=== PATIENT | female | born 1950 | race Caucasian/White ===

== ENCOUNTER 2020-05-03 07:40 | Inpatient (IN) ==
--- NOTE | 2020-04-18 15:29 | PAT Medication Instructions ---
Medication Instructions Date of Service April 18, 2020 Home Medications Medication Instructions Recorded levothyroxine 75 mcg tablet 75 mcg PO .COMPLEX #100 tab 01/29/20 epinephrine 0.3 mg/0.3 mL injection, auto-injector 0.3 ml IM ONCE levothyroxine 75 mcg tablet 75 mcg PO .complex calcium carbonate-vitamin D3 [Calcium + D] 2 tab PO DAILY cholecalciferol (vitamin D3) [Vitamin D3] 50 mcg PO QAM Continue as directed epinephrine 0.3 mg/0.3 mL injection, auto-injector 0.3 ml IM ONCE DO NOT take the morning of surgery calcium carbonate-vitamin D3 [Calcium + D] 2 tab PO DAILY cholecalciferol (vitamin D3) [Vitamin D3] 50 mcg PO QAM Take morning of surgery With a small sip of water, OTHERWISE NOTHING TO EAT OR DRINK AFTER MIDNIGHT: levothyroxine 75 mcg tablet 75 mcg PO .complex Other Notes If you have any questions please call us at [phone] or [phone] or [phone] or [phone]
--- NOTE | 2020-04-19 13:30 | Anesthesiology Consultation ---
Date of Service April 19, 2020 Assessment & Plan (1) Encounter for pre-operative examination: COVID Status: As of 04/19 assessment, patient denies travel to endemic area, known exposure/sick contacts, or symptoms of COVID19. Patient instructed that they and their household members must follow strict social distancing guidelines, wear a mask in public and avoid travel/events/gatherings for 14 days prior to surgery. Preoperative COVID19 testing to be completed prior to surgery per surgeon's arrangements (04/26). Patient made aware to self-isolate as much as possible between COVID testing and surgery. Chart Review Chart Review: Acceptable Risk for Surgery and Patient seen in Pre Admission Testing Teaching & Discussion Instructed NPO after midnight before surgery, except medications with 15 cc of water. Medication instructions provided according to the PAT guidelines. History Surgery Operation Date: 05/03/20 09:05 Proposed Procedures p L3-L5 Decompression Fusion, Spinal Cord Monitoring - Masood Overton, Height/Weight Height: 5 ft 9 in Weight: 69.9 kg Allergies Allergy/AdvReac Type Severity Reaction Status Date / Time bee venom protein (honey bee) Allergy Severe ANAPHYLAXIS Verified 04/07/20 13:35 cat dander Allergy Intermediate ITCHY Verified 04/07/20 13:35 EYES, SNEEZING, RUNNY NOSE Medications Home Medications Medication Instructions Recorded Confirmed Last Taken epinephrine 0.3 mg/0.3 mL 0.3 ml IM ONCE ea 10/08/18 04/07/20 Unknown injection, auto-injector levothyroxine 75 mcg tablet 75 mcg PO .COMPLEX #100 tab 01/29/20 04/07/20 Unknown calcium carbonate-vitamin D3 2 tab PO DAILY 04/07/20 04/07/20 Unknown [Calcium + D] cholecalciferol (vitamin D3) 50 mcg PO QAM 04/07/20 04/07/20 Unknown [Vitamin D3] Past Medical History Medical History Degenerative disc disease Hypothyroidism Nerve damage RT HAND FINGERS Osteoarthritis Spinal stenosis Exercise / Class Metabolic Activity II 4-5 Yardwork/Stairs/Walk up hill Past Family History Family History Mother Bone cancer Heart disease Asthma Family history of diabetes mellitus Father Family history of diabetes mellitus Other No family history of adverse response to anesthesia Past Surgical History Surgical History H/O wrist surgery RT WRIST FX REPAIR (HARDWARD INTACT) History of hysterectomy History of tooth extraction Past Anesthesia History No Hx of Anesthesia Complications and No Family Hx of Anesthesia Complications History of PONV No Hx of PONV and No Hx of Motion Sickness Social History Smoking Status: Former smoker tobacco type: cigarettes Do You Dip or Chew Tobacco: No Smoking End Date: 1990 Hx Alcohol Use: Yes Alcohol type: wine alcohol intake frequency: a few times a month substance use type: does not use Review of Systems Pt denies any recent chest pain, shortness of breath, palpitations, cough, fever, URI, or uncontrolled acid reflux. Physical Exam Vital Signs BP: 138/84 P: 65bpm SPO2: 99% RA T: 97.8 F R: 16 ENMT Mouth: + dentures (full upper); no chipped teeth and no loose teeth Thyromental Distance: < 3.5 Finger Breadths (3) Mallampati Class: III Neck normal visual inspection; neck extension not limited Respiratory normal respiratory effort, lungs clear to auscultation Cardiovascular RRR, no murmur, no edema Vessels: no carotid bruit Testing Laboratory Results 04/19/20 14:01 04/19/20 14:01 PT 10.2 Seconds (9.0-12.0) 04/19/20 14:01 INR 1.0 (0.9-1.1) 04/19/20 14:01 APTT 24.2 Seconds (21.0-31.0) 04/19/20 14:01 Urine Color Yellow 04/19/20 Unknown Urine Appearance Clear (Clear) 04/19/20 Unknown Urine pH 5.5 (4.5-7.5) 04/19/20 Unknown Ur Specific [place] 1.016 (1.000-1.030) 04/19/20 Unknown Urine Protein Negative (Negative) 04/19/20 Unknown Urine Glucose (UA) Negative (Negative) 04/19/20 Unknown Urine Ketones Negative (Negative) 04/19/20 Unknown Urine Nitrite Negative (Negative) 04/19/20 Unknown Ur Leukocyte Esterase Negative (Negative) 04/19/20 Unknown Blood Type O Positive 04/19/20 14:01 Antibody Screen NEGATIVE 04/19/20 14:01 Electrocardiogram Date: 04/19/20 Findings: + NSR @ (62bpm) Chest X-Ray Date: 04/19/20 Findings: + NAD
--- NOTE | 2020-04-19 14:29 | XRay Report ---
XR chest Pre-admission PA/Lat HISTORY: 69 years-old Female pat preoperative exam. No acute chest complaints COMPARISON: None TECHNIQUE: PA and lateral views of the chest FINDINGS: Cardiomediastinal and hilar silhouettes are within normal limits. Calcified plaque of the thoracic ao rta. No pneumothorax, pleural effusion, airspace consolidation or overt pulmonary edema. Bones of the chest appear grossly intact. IMPRESSION: No acute process. ACT 112: Negative or not required by law. The above report was generated using voice recognition software. It may contain grammatical, syntax o r spelling errors. Electronically signed by: Humberto Tabares M.D. 04/19/2020 2:28 PM
[2020-04-19 15:00] LABS: Basophils # (auto) 0.02 K/uL (0-0.2); Basophils % (auto) 0.3 %; Eosinophils # (auto) 0.21 K/uL (0-0.5); Eosinophils % (auto) 3.5 %; Hematocrit (blood only) 39.9 % (37-47); Hemoglobin 13.3 g/dL (12.0-16.0); Immature Granulocytes # (auto) 0.01 K/uL (0.00-0.02); Immature Granulocytes % (auto) 0.2 %; Lymphocytes # (auto) 1.51 K/uL (1.2-3.4); Lymphocytes % (auto) 24.9 %; Mean Corpuscular Hemoglobin 29.3 pg (25-34); Mean Corpuscular Hgb Conc 33.3 g/dL (32-36); Mean Corpuscular Volume 87.9 fL (80-100); Mean Platelet Volume 9.3 fL (7.4-10.4); Monocytes # (auto) 0.54 K/uL (0.11-0.59); Monocytes % (auto) 8.9 %; Neutrophils # (auto) 3.77 K/uL (1.4-6.5); Neutrophils % (auto) 62.2 %; Platelet Count 256 K/uL (130-400); RDW Coefficient of Variation 13.8 % (11.5-14.5); RDW Standard Deviation 44.5 fL (36.4-46.3); Red Blood Count 4.54 M/uL (4.2-5.4); White Blood Count 6.06 K/uL (4.8-10.8)
[2020-04-19 15:01] LABS: Appearance Urine Clear (Clear); Bilirubin Urine Negative (Negative); Blood Urine Negative (Negative); Color Urine Yellow; Glucose Urine UA Negative (Negative); Ketones Urine Negative (Negative); Leukocyte Esterase Urine Negative (Negative); Nitrite Urine Negative (Negative); Protein Urine Negative (Negative); Specific Gravity Urine 1.016 (1.000-1.030); Urobilinogen Urine Negative (Negative); pH Urine 5.5 (4.5-7.5)
[2020-04-19 15:12] LABS: Partial Thromboplastin Ratio 0.9; Partial Thromboplastin Time 24.2 Seconds (21.0-31.0); Prothrombin Time 10.2 Seconds (9.0-12.0)
[2020-04-19 15:25] LABS: BUN Creatinine Ratio 23.8 (10-20); Calcium 10.1 mg/dl (8.5-10.1); Creatinine Clr Calc Pharmacy 50.9 ml/min; Est GFR (African American) 61.2; Est GFR (Non-African American) 52.8; Potassium 4.5 mmol/L (3.5-5.1)
--- NOTE | 2020-04-19 17:05 | Electrocardiogram Report ---
Test Reason : Blood Pressure : / mmHG Vent. Rate : 062 BPM Atrial Rate : 062 BPM P-R Int : 196 ms QRS Dur : 088 ms QT Int : 452 ms P-R-T Axes : 084 085 078 degrees QTc Int : 458 ms Normal sinus rhythm Normal ECG When compared with ECG of 18-JUN-2016 17:56, Vent. rate has increased BY 20 BPM Confirmed by Horacio Conway ([id number]) on 04/19/2020 5:05:35 PM Referred By: Masood Overton Confirmed By:Horacio Conway
[~2020-05-03 07:40] MED LIST: ACETAMINOPHEN 500 MG TAB PO SCH; CeleBREX 200 MG CAP PO SCH; GABAPENTIN 300 MG CAP PO SCH; LR 15ML/HR IV SCH; ceFAZolin 1000MG 1,000 MG/7.5 ML SYR IV SCH
[2020-05-03] MEDS ORDERED: DEXAMETHASONE SOD INJ 4 MG/ML VIAL ONE (08:33)
[2020-05-03] MEDS ORDERED: ONDANSETRON INJ 2 MG/ML 2 ML VIAL ONE ×2 (08:33→09:51)
[2020-05-03] MEDS ORDERED: NEOSTIGMINE METHYLSULFATE 1 MG/ML 10ML VIAL ONE (08:33)
[2020-05-03] MEDS ORDERED: PROPOFOL IV EMULSION 10 MG/ML 20 ML VIAL IV ONE (08:33)
[2020-05-03] MEDS ORDERED: MIDAZOLAM HCL 1 MG/ML 2ML VIAL ONE (08:33)
[2020-05-03] MEDS ORDERED: fentaNYL citrate 100 MCG/2 ML VIAL ONE (08:33)
[2020-05-03] MEDS ORDERED: LIDOCAINE HCL 2% 2 ML VIAL/AMP(20MG/ML) INFIL ONE (08:33)
[2020-05-03] MEDS ORDERED: GLYCOPYRROLATE 0.2 MG/ML VIAL ONE ×2 (08:33→09:51)
[2020-05-03] MEDS ORDERED: HYDROmorphone INJ 2 MG/ML SYR/VIAL ONE (08:34)
[2020-05-03] MEDS ORDERED: SODIUM CHLORIDE 0.9% INJ 10 ML VIAL ONE (08:34)
[2020-05-03] MEDS ORDERED: LARYING-O-JET KIT (LTA) ONE (08:34)
[2020-05-03] MEDS ORDERED: ROCURONIUM BROMIDE 10 MG/ML 5 ML VIAL IV ONE (08:34)
--- NOTE | 2020-05-03 08:41 | History & Physical Bridge Note ---
Date of Service May 03, 2020 History & Physical Bridge Note I have examined the patient, reviewed the History & Physical and in the interval since the performance of the History & Physical I have noted the following changes of clinical significance: no changes noted
--- NOTE | 2020-05-03 08:42 | History & Physical Report ---
Date of Service May 03, 2020 Assessment & Plan (1) Lumbar spinal stenosis: Admission and Anticipated Discharge Date Admission Date: L3-L5 decompression fusion History of Present Illness Chief Complaint: Back and bilateral leg pain Primary Care Provider: Peewee Paz MD This is a 69-year-old female who presents with chronic persistent back and bilateral leg pain. Failing course of nonoperative care is here for surgical intervention. Allergies Allergy/AdvReac Type Severity Reaction Status Date / Time bee venom protein (honey bee) Allergy Severe ANAPHYLAXIS Verified 05/03/20 07:52 cat dander Allergy Intermediate ITCHY Verified 05/03/20 07:52 EYES, SNEEZING, RUNNY NOSE Home Medications Medication Instructions Recorded Confirmed Type epinephrine 0.3 mg/0.3 mL 0.3 ml IM ONCE ea 10/08/18 05/03/20 History injection, auto-injector levothyroxine 75 mcg tablet 75 mcg PO .COMPLEX #100 tab 01/29/20 05/03/20 Rx calcium carbonate-vitamin D3 2 tab PO DAILY 04/07/20 05/03/20 History [Calcium + D] cholecalciferol (vitamin D3) 50 mcg PO QAM 04/07/20 05/03/20 History [Vitamin D3] Past Med/Surg History Medical History Degenerative disc disease Hypothyroidism Nerve damage Osteoarthritis Spinal stenosis Surgical History H/O wrist surgery History of hysterectomy History of tooth extraction Family History Mother Bone cancer Heart disease Asthma Family history of diabetes mellitus Father Family history of diabetes mellitus Other No family history of adverse response to anesthesia Social History Smoking Status: Former smoker Age Started Using Tobacco: 21; Age Quit Using Tobacco: 43; packs per day: 1; Smoking End Date: 1990; Second Hand Exposure: No; Do You Dip or Chew Tobacco: No; Tobacco Cessation Education Requested by Patient: No Hx Alcohol Use: Yes Alcohol type: wine Preferred Language: Pashto Orthotic Aide Required: No Beliefs That Will Affect Care: None marital status: Life Partner Current Living Situation: Significant Other Current Living Situation Comment: boyfriend current occupational status: retired Feels Safe at Home: Yes Safety Concerns: Feels Safe At This Time Childhood Exposure to Second-Hand Smoke: Yes Dental Care, Regularly: Yes Physical Activity Frequency: 3-4 Times per Week Seatbelt Use: always Sunscreen Use: Yes Assistive Devices: Denture - Upper and Glasses Physical Exam Physical Exam: Patient is alert and oriented Heart regular in rhythm Lungs clear to auscultation Results & Data ([facility]) Vital Signs (Past 12 Hours) Vital Signs Temp Pulse Resp BP Pulse Ox 05/03/20 08:07 36.9 C 66 16 145/75 H 99
[2020-05-03] MEDS ORDERED: BACITRACIN INJ 50,000 UNIT VIAL ONE (08:57)
[2020-05-03] MEDS ORDERED: BUPIVACAINE/EPINEPHRINE 0.5% MPF 1:200,000 30 ML VIAL ONE (08:57)
[2020-05-03] MEDS ORDERED: ATROPINE SULFATE 0.1 MG/ML 10ML SYR IV PRN (09:16)
[2020-05-03] MEDS ORDERED: HYDROmorphone INJ 2 MG/ML SYR/VIAL IV PRN (09:16)
[2020-05-03] MEDS ORDERED: fentaNYL citrate 100 MCG/2 ML VIAL IV PRN (09:16)
[2020-05-03] MEDS ORDERED: ONDANSETRON INJ 2 MG/ML 2 ML VIAL IV PRN ×2 (09:16→13:26)
[2020-05-03] MEDS ORDERED: PROMETHAZINE HCL 12.5 MG in SODIUM CHLORIDE 0.9% 50 ML IV PRN ×2 (09:16→13:26)
[2020-05-03] MEDS ORDERED: ePHEDrine sulfate 50 MG/ML AMP IV PRN (09:16)
[2020-05-03] MEDS ORDERED: ePHEDrine sulfate 50 MG/ML SYR ONE (09:51)
[2020-05-03] MEDS ORDERED: FLOSEAL HEMOSTATIC MATRIX 10ML TOP ONE (11:04)
--- NOTE | 2020-05-03 11:25 | Operative Report ---
Post Operative Report Pre & Post Diagnosis Operation Date: 05/03/20 09:15 Pre-Op Diagnosis: Spinal Stenosis, Lumbar Region with Neurogenic Claudication Post-Op Diagnosis: Spinal Stenosis, Lumbar Region with Neurogenic Claudication I identified the patient and participated in the time-out.: Yes Procedure Operation Date: 05/03/20 09:15 Actual Procedures #1 lumbar decompression with bilateral medial facetectomies and foraminotomies L2-3, L3-4 and L4-5. #2 posterior spinal fusion L3-4 and L4-5 per #3 patient posterior instrumentation L3-4 and L4-5. #4 interbody fusion L3-4 and L4-5 per #5 placement of locally harvested morselized autograft in the posterior lateral gutters. #7 placement of I factor interbody space and posterior gutters. Surgeon Masood Overton, Non Acoustic Operator Darlene Wray Estimated Blood Loss 50 Findings Consistent with Post-Op Diagnosis Specimens None Indications This is a 69-year-old female who presents above-mentioned nociceptive failing since course of nonoperative care is here for surgical invention. Description of Procedure Patient was met with identified informed consent obtained. Patient was then taken to the operative suite underwent an patient placed in prone position Jairo table top Hugo frame. All bony prominences well-padded eyes inspected to ensure no external pressure placed upon the. This point the lumbar spine was prepped and draped in normal sterile fashion. Sharp dissection with the assistance of Bovie cautery performed down to and exposing the lamina and transverse processes of L3-4 and L5. From caudal cephalad fashion complete laminectomy of L4 L3 and partial anatomy of L2 was performed including bilateral medial facetectomies and foraminotomies addressing severe spinal stenosis. Pedicle screws were then placed in L3 and L4 and L5 bilaterally with assistance of fluoroscopy and appropriate sized emiliano placed. By way of a transforaminal approach on the right complete discectomy of L4-L5 was performed endplates curetted to subcortical bleeding bone and a 10 x 22 mm peek cage filled with I factor tapped in position. Then proceeded to L3-L4. By way of a transfemoral approach on right complete discectomy performed endplates curetted to subcortically bone and the 10 x 22 mm peek cage filled with I factor tapped in position. The rods were then locked into final position bilaterally. The transverse processes of L3-L4-L5 burred to subcortical bleeding bone. Locally harvested morselized autograft combined with I factor was then placed in the posterior lateral gutters. 15 round NANCY drain inserted. Incision was then closed with 1 Vicryl in the fascia 2-0 Vicryl subcutaneously and 4 Monocryl for final skin closure. Steri-Strip sterile dressings placed. Patient waken taken PACU stable condition. Please note spinal cord monitoring was utilized at the procedure and no changes noted. Salome Wray was present at the entire surgeon involved the patient positioning complex portions of the surgery and fascial closure. I attest to the content of the Intraoperative Record and any orders documented therein. Any exceptions are noted below.
--- NOTE | 2020-05-03 12:34 | Fluoroscopy Report ---
FL lumbar spine 2-3V CLINICAL HISTORY: L3-L5 DECOMPRESSION AND FUSION COMPARISON STUDY: FLUOROSCOPY TIME: 29 seconds. NUMBER OF FLUOROSCOPIC IMAGES: 2 FINDINGS: 2 intraoperative fluoroscopic spot images reveal postsurgical changes of an L3-4 and L4-5 d iscectomy and interbody fusion. There is posterior pedicle screw fixation. IMPRESSION: Postsurgical changes of an L3-5 spinal decompression and fusion. ACT 112: Negative or not required by law. Electronically signed by: Yonathan Umanzor M.D. 05/03/2020 12:33 PM
[2020-05-03] MEDS ORDERED: ACETAMINOPHEN 1,000 MG/100 ML VIAL IV PRN (13:26)
[2020-05-03] MEDS ORDERED: HYDROmorphone INJ 1 MG/ML SYRINGE IV PRN (13:26)
[2020-05-03] MEDS ORDERED: HYDROmorphone INJ 0.5 MG/0.5 ML SYR IV PRN (13:26)
[2020-05-03] MEDS ORDERED: DO NOT ADMINISTER FLU VACCINE PRN (13:26)
[2020-05-03] MEDS ORDERED: FAMOTIDINE 20 MG TAB PO PRN (13:26)
[2020-05-03] MEDS ORDERED: ONDANSETRON 4 MG OD TAB PO PRN (13:26)
[2020-05-03] MEDS ORDERED: EPINEPHrine ADULT AUTO-INJECT 0.3 MG SYR IM PRN (13:26)
[2020-05-03] MEDS ORDERED: ALUMINUM/MAGNESIUM SUSP 30 ML UDC PO PRN (13:26)
[2020-05-03] MEDS ORDERED: METOCLOPRAMIDE HCL INJ 5 MG/ML 2 ML VIAL IV PRN (13:26)
[2020-05-03] MEDS ORDERED: LORazepam 0.5 MG/1 ML VIAL IV PRN (13:26)
[2020-05-03] MEDS ORDERED: LORazepam 0.5 MG TAB PO PRN (13:26)
[2020-05-03] MEDS ORDERED: SOD PHOSPHATE/SOD BIPHOSPHATE ENEMA 132 ML BTL PR PRN (13:26)
[2020-05-03] MEDS ORDERED: NALOXONE HCL 0.4 MG/1 ML VIAL/CARP IV PRN (13:26)
[2020-05-03] MEDS ORDERED: bisacodyL 10 MG SUPP PR PRN (13:26)
[2020-05-03] MEDS ORDERED: DO NOT ADMINISTER PNEUMOCOCCAL VACCINE PRN (13:26)
[2020-05-03] MEDS ORDERED: oxyCODONE HCL IR 5 MG TAB (IMMEDIATE RELEASE) PO PRN (13:26)
[2020-05-03] MEDS ORDERED: MAGNESIUM HYDROXIDE SUSP 30 ML UDC PO PRN (13:26)
[2020-05-03] MEDS ORDERED: hydrOXYzine HCl 25 MG TAB PO PRN (13:26)
[2020-05-03] MEDS ORDERED: ACETAMINOPHEN 500 MG TAB PO PRN (13:26)
[2020-05-03] MEDS ORDERED: diphenhydrAMINE Capsule 25 MG CAP PO PRN (13:26)
[2020-05-03] MEDS: LACTATED RINGER'S 1,000 ML IV SCH (16:03)
--- NOTE | 2020-05-03 16:13 | Anesthesiology Progress Note ---
Date of Service May 03, 2020 Anesthesia Post Procedure Vital Signs Vital Signs: Temp Pulse Pulse Resp BP BP Pulse Ox 05/03/20 14:50 36.4 C L 60 16 113/53 L 97 05/03/20 13:50 74 16 112/64 99 05/03/20 13:20 65 16 115/60 95 05/03/20 12:50 36.5 C 60 16 135/61 96 05/03/20 12:30 36.3 C L 56 L 14 130/57 L 96 05/03/20 12:20 51 L 16 137/61 98 05/03/20 12:10 60 20 133/72 97 05/03/20 12:00 55 L 14 128/62 97 05/03/20 11:50 66 14 141/83 H 99 05/03/20 11:45 36.4 C L 99 H 12 122/67 100 05/03/20 08:07 36.9 C 66 16 145/75 H 99 Pain Intensity Posterior Back: Pain Intensity: 6 Transfer of Care Handoff Completed per policy Notes Mental Status: alert / awake / arousable and participated in evaluation Patient Amnestic to Procedure: Yes Nausea / Vomiting: adequately controlled Pain: adequately controlled Airway Patency, RR, SpO2: stable & adequate BP & HR: stable & adequate Hydration State: stable & adequate Anesthetic Complications: no major complications apparent
[2020-05-03] MEDS: ceFAZolin 1000MG 1,000 MG/7.5 ML SYR IV SCH (18:55)
[2020-05-03] MEDS: DOCUSATE SODIUM/SENNA 50/8.6MG TAB PO SCH (20:38)
[2020-05-04] MEDS: LACTATED RINGER'S 1,000 ML IV SCH (02:17)
[2020-05-04] MEDS: ceFAZolin 1000MG 1,000 MG/7.5 ML SYR IV SCH (02:18)
[2020-05-04] MEDS: LEVOTHYROXINE SODIUM 75 MCG TABLET PO SCH (06:12)
[2020-05-04] MEDS: POLYETHYLENE (MIRALAX) 17 GM PACK PO SCH ×4 (06:12→23:31)
[2020-05-04 06:25] LABS: Basophils # (auto) 0.01 K/uL (0-0.2); Basophils % (auto) 0.1 %; Eosinophils # (auto) 0.07 K/uL (0-0.5); Eosinophils % (auto) 0.7 %; Hematocrit (blood only) 31.5 % (37-47); Hemoglobin 10.6 g/dL (12.0-16.0); Immature Granulocytes # (auto) 0.01 K/uL (0.00-0.02); Immature Granulocytes % (auto) 0.1 %; Lymphocytes # (auto) 1.42 K/uL (1.2-3.4); Lymphocytes % (auto) 13.9 %; Mean Corpuscular Hemoglobin 29.4 pg (25-34); Mean Corpuscular Hgb Conc 33.7 g/dL (32-36); Mean Corpuscular Volume 87.5 fL (80-100); Monocytes # (auto) 1.06 K/uL (0.11-0.59); Monocytes % (auto) 10.4 %; Neutrophils # (auto) 7.67 K/uL (1.4-6.5); Neutrophils % (auto) 74.8 %; Platelet Count 237 K/uL (130-400); RDW Coefficient of Variation 14.3 % (11.5-14.5); RDW Standard Deviation 46.3 fL (36.4-46.3); White Blood Count 10.24 K/uL (4.8-10.8)
[2020-05-04 06:59] LABS: BUN Creatinine Ratio 16.4 (10-20); Calcium 9.2 mg/dl (8.5-10.1); Creatinine Clr Calc Pharmacy 53.9 ml/min; Est GFR (African American) 65.6; Est GFR (Non-African American) 56.6; Potassium 4.6 mmol/L (3.5-5.1)
[2020-05-04] MEDS: CALCIUM 600MG + VIT D 400 IU TAB PO SCH (08:33)
[2020-05-04] MEDS: CHOLECALCIFEROL 1,000 UNITS 25 MCG TAB PO SCH (08:33)
[2020-05-04] MEDS: traMADol HCL 50 MG TABLET PO PRN ×2 (12:56→17:31)
--- NOTE | 2020-05-04 13:05 | Orthopedic Progress Note ---
Date of Service May 04, 2020 Assessment & Plan (1) Lumbar spinal stenosis: Admission and Anticipated Discharge Date Admission Date: May 03, 2020 This time we will continue physical therapy monitor NANCY output hopefully discharge home later this week. Subjective Back pain controlled leg symptoms improved. Physical Exam Physical Exam: Patient is good strength testing appears comfortable. Results & Data ([facility]) Vital Signs (Past 12 Hours) Vital Signs Temp Pulse Pulse Resp BP Pulse Ox 05/04/20 08:40 59 L 18 95/52 L 98 05/04/20 07:42 36.8 C 66 16 104/56 L 96 05/04/20 06:01 76 117/63 05/04/20 02:18 36.7 C 58 L 15 93/43 L 97
[2020-05-04] MEDS: DOCUSATE SODIUM/SENNA 50/8.6MG TAB PO SCH (20:20)
[2020-05-05] MEDS: LEVOTHYROXINE SODIUM 75 MCG TABLET PO SCH (05:26)
[2020-05-05] MEDS: POLYETHYLENE (MIRALAX) 17 GM PACK PO SCH ×3 (05:26→19:04)
[2020-05-05] MEDS: traMADol HCL 50 MG TABLET PO PRN ×2 (08:52→20:09)
[2020-05-05] MEDS: CHOLECALCIFEROL 1,000 UNITS 25 MCG TAB PO SCH (08:54)
[2020-05-05] MEDS: dexAMETHasone 8 MG in SYRINGE 0 ML IV SCH (08:54)
[2020-05-05] MEDS: CALCIUM 600MG + VIT D 400 IU TAB PO SCH (08:54)
--- NOTE | 2020-05-05 15:28 | Orthopedic Progress Note ---
Date of Service May 05, 2020 Assessment & Plan (1) Lumbar spinal stenosis: Admission and Anticipated Discharge Date Admission Date: May 03, 2020 This time continue physical therapy monitor NANCY output anticipate discharge home tomorrow. Subjective Back pain controlled leg symptoms improved Physical Exam Physical Exam: Patient is good strength testing is ambulating well. Appears comfortable. Results & Data ([facility]) Vital Signs (Past 12 Hours) Vital Signs Temp Pulse Resp BP Pulse Ox 05/05/20 07:48 37.0 C 59 L 16 108/65 95
[2020-05-05] MEDS: DOCUSATE SODIUM/SENNA 50/8.6MG TAB PO SCH (20:07)
[2020-05-06] MEDS: POLYETHYLENE (MIRALAX) 17 GM PACK PO SCH ×3 (00:15→13:08)
[2020-05-06] MEDS: LEVOTHYROXINE SODIUM 75 MCG TABLET PO SCH (05:22)
[2020-05-06] MEDS: CALCIUM 600MG + VIT D 400 IU TAB PO SCH (09:35)
[2020-05-06] MEDS: CHOLECALCIFEROL 1,000 UNITS 25 MCG TAB PO SCH (09:35)
[2020-05-06] MEDS: dexAMETHasone 8 MG in SYRINGE 0 ML IV SCH (09:35)
--- NOTE | 2020-05-06 09:53 | Discharge Summary ---
Date of Service May 06, 2020 Admission HPI Per Admitting Provider This is a 69-year-old female who presents with chronic persistent back and bilateral leg pain. Failing course of nonoperative care is here for surgical intervention. Principal Diagnosis Lumbar spinal stenosis with neurogenic claudication Discharge Data Allergies Allergy/AdvReac Type Severity Reaction Status Date / Time bee venom protein (honey bee) Allergy Severe ANAPHYLAXIS Verified 05/03/20 07:52 cat dander Allergy Intermediate ITCHY Verified 05/03/20 07:52 EYES, SNEEZING, RUNNY NOSE Procedures Performed Operation Date: 05/03/20 09:15 Actual Procedures p L3-L5 Decompression and Fusion, Spinal Cord Monitoring(Not Applicable) - Masood Overton DO Ordered Studies 05/03/20 09:15 FL fluoroscopy <1hr Routine FL lumbar spine 2-3V Routine Hospital Course (1) Lumbar spinal stenosis: Patient went lumbar decompression fusion tolerates well second orthopedic for possibly. Postop day 1 she was up and ambulating present postop day or 2 on postop day #3 pain was well controlled NANCY drain decreased appropriately. Excellent strength testing. Subsequently discharged home. Discharge orders instructions were on the chart for further review. Total Time Total Time Spent Total Time Spent (In Minutes): 20 minutes Discharge Plan Discharge Items Patient Disposition: Home - Self-Care Reason For Visit: Spinal Stenosis, Lumbar Region with Neurogenic Discharge Diagnosis: Lumbar spinal stenosis with neurogenic claudication Activity: As commented below Non-emergency contact: Primary Care Provider Call non-emergency contact if: you have any medication questions Follow-up/Referrals: Peewee Paz MD [Primary Care Provider] - Diet: Regular Addtl Attending Provider Instructions: ACTIVITY RECOMMENDATIONS: SELF CARE INSTRUCTIONS AFTER THORACIC/LUMBAR FUSIONS 1. You may walk to your tolerance. It is good exercise for your legs and back. Expect some back and intermittent leg aches and pains. 2. You may perform "counter-top" level activities (make a sandwich, shirley with a project, etc.). 3. No bending or lifting of more than 10 pounds or back twisting of any nature (roll like a log when turning in bed). 4. You may ride in a car for 20-30 minutes at a time. No driving until after your first visit with your doctor. 5. Frequent changes of position and restricting sitting to 30 minutes at a time will help limit the amount of back spasms and stiffness you may experience. 6. You may discontinue the use of ambulatory aids (cane, crutches, etc.) once your strength and confidence allow. 7. You may chemical equipment sales engineer the shower and let water strike your incision when you arrive home at least once daily. Do not take a tub bath, sit in a hot tub or go into a swimming pool until after your first recheck in the office. SPECIAL CARE INSTRUCTIONS: VERY IMPORTANT TO READ AND REVIEW A. Your surgical incision has been closed with a cosmetic suture under the skin that will dissolve in about 6 weeks. In 14 days, you can use a pair of clean scissors and cut the suture that is left outside of the skin at the ends of your incision. 1. The small skin tapes can be removed 7 days after surgery if they have not fallen off by that point. 2. You may keep the wound open to air as much as possible to promote healing after post-op day number 5 unless told otherwise by your doctor. 3. If you think the wound looks like it is becoming infected (redness or worsening drainage) and/or you are experiencing fever, chill or worsening back pain and muscle spasms, contact the office so that we may evaluate you as soon as possible. B. Complications are uncommon, but please contact us if you have any signs or symptoms of: 1. wound infection (fever higher than 102.5 degrees F, redness, separation of wound, drainage, or increasing pain from the incision) 2. blood clots in legs (pain, swelling, redness and warmth in legs) 3. urinary tract infection (fever higher than 102.5 degrees F, burning upon urination or increased frequency of urination) 4. nerve problems (inability to walk on your toes or heels, numbness, loss of bowel or bladder control) 5. any other symptoms that concern you C. Please call the office at if you have any concerns or questions about your operation or recovery. D. No smoking! Smoking drastically decreases the chance of a solid fusion. E. Do not take any anti-inflammatory medications (Indocin, Advil, Motrin, Aspirin, Naprosyn, etc.) as these may inhibit the chance of a solid fusion. Tylenol is okay to take for pain. MANAGING PAIN AFTER SPINAL SURGERY 1. Narcotic medication is intended for short-term use and will be provided for surgical pain. Surgical pain usually lasts for a period of 4-6 weeks. Narcotic medication includes Percocet, Vicodin, Darvocet, Tylenol #3 or Lortab. 2. Longer-term pain is more appropriately treated with non-narcotic medication such as Tylenol ES. 3. Muscle spasm is not appropriately treated with narcotics. Muscle relaxers such as Soma, Flexeril or Skelaxin can be used along with Tylenol ES. 4. Remember that we all live with some "aches and pains". This is not unusual or uncommon after an injury or as we get older. a. Back pain is expected and may include muscle spasms for 4 to 6 weeks after surgery. The pain should gradually improve. If the pain worsens for no apparent reason, please contact the office. b. Intermittent leg pain may also be experienced and should not be concerned about unless it worsens for no apparent reason. If so, please contact the office. 5. We will provide appropriate medication within the normal guidelines of their prescribed use. We will also be very cautious and aware of potential abuse and extended duration of patients' medication needs. a. Pain medications are for your comfort and to assist with sleep and rest so that the tissue can heal. They are not provided in order to return to normal activity and should not be used through the day. To do so or worsening pain at night can result from ongoing tissue damage and development of tolerance to the prescribed medicine. 6. Please allow 2-3 days to process refills. Prescriptions will not be mailed but must be picked up at the office. FOLLOW UP VISIT: Keep your scheduled follow-up appointment. Any questions, please call the office at . Pending Studies at Discharge: No Stand-Alone Forms: My [facility] 3seventy, Smoking Cessation Medications and DC Order Prescriptions: New oxycodone 5 mg tablet 5 mg PO Q6H PRN (Reason: pain, severe) Qty: 30 RF: 0 tramadol 50 mg tablet 50 mg PO Q6H PRN (Reason: pain, moderate) Qty: 30 RF: 0 Continued epinephrine 0.3 mg/0.3 mL auto-injector 0.3 ml IM ONCE RF: 0 levothyroxine 75 mcg tablet 75 mcg PO .COMPLEX Qty: 100 RF: 3 calcium carbonate-vitamin D3 600 mg(1,500mg) -200 unit Tablet 2 tab PO DAILY RF: 0 cholecalciferol (vitamin D3) [Vitamin D3] 25 mcg (1,000 unit) Tablet 50 mcg PO QAM RF: 0 Discharge Orders: Discharge Order (Routine); Ordered 05/06/20 Ordered By: Masood Overton Admission Data Admit Date/Time: 05/03/20 11:50 Attending Provider: Masood Overton Admit Provider: Masood Overton Primary Care Provider: Peewee Paz
[2020-05-06] MEDS: traMADol HCL 50 MG TABLET PO PRN (14:35)
== END 2020-05-06 16:36 | disposition home or self-care (01) | DRG 455 ==
LOC: ASU 07:40 → 3W 11:50